=== PATIENT | male | born 1955 | race African-American/Black ===

== ENCOUNTER 2019-09-05 12:36 | Inpatient (IN) | payer MEDICAID ==
[~2019-09-05] VITALS: Ht 180.3 cm; Wt 102.8 kg
[~2019-09-05 12:36] MED LIST: FERR-71 MT; METO5AMP3 IV; VIT1TABL62 PO
[2019-09-05] MEDS ORDERED: ACETAMINOPHEN 325MG TABLET PO STA (13:15)
[2019-09-05 13:28] LABS: HEMATOCRIT. 32.3 % (42.0-52.0); HEMOGLOBIN. 10.8 g/dL (14.0-18.0); MEAN CORPUSCULAR HEMOGLOBIN 29.9 pg (28.0-32.0); MEAN CORPUSCULAR VOLUME 89.2 fL (80.0-94.0); MEAN PLATELET VOLUME 10.3 fl (7.4-10.4); PLATELET 82 x1000/uL (130-400); RED BLOOD CELL COUNT 3.62 mill/uL (4.7-6.1); RED CELL DISTRIBUTION WIDTH 17.7 % (11.6-14.6)
[2019-09-05 13:32] LABS: CHLORIDE 101 mEq/L (98-107); PROTHROMBIN TIME 11.1 sec (9.6-11.0)
[2019-09-05 14:20] LABS: PLATELET ESTIMATE SLIGHTLY DECREASED
[2019-09-05] MEDS ORDERED: METOCLOPRAMIDE HCL 10MG/2ML VIAL IV PRN (17:45)
[2019-09-05] MEDS ORDERED: CEFTRIAXONE 1 G PREMIX 50 ML IV SCH ×2 (17:45→18:23)
[2019-09-05] MEDS ORDERED: ASCORBIC ACID 500 MG TABLET PO SCH (22:26)
[2019-09-05 23:51] LABS: CLARITY URINE CLEAR (CLEAR); COLOR URINE YELLOW (YELLOW); KETONES URINE TRACE (NEGATIVE); LEUKOCYTE ESTERASE URINE NEGATIVE (NEGATIVE); NITRITE URINE NEGATIVE (NEGATIVE); OCCULT BLOOD URINE 1+ (NEGATIVE); PH URINE 6.5 (4.5-8.0); PROTEIN URINE 2+ (NEGATIVE); SPECIFIC GRAVITY URINE 1.015 (1.005-1.030)
[2019-09-06] MEDS: ACETAMINOPHEN 325MG TABLET PO PRN (00:47)
[2019-09-06] MEDS ORDERED: CEFEPIME 2,000 MG in DEXT 5% WATER 100 ML IV NR (02:00)
[2019-09-06 04:00] VITALS: BP 131/68
[2019-09-06 08:00] VITALS: BP 150/82
[2019-09-06] MEDS: HYDROXYCHLOROQUINE SULFATE 200MG TABLET PO SCH ×2 (08:55→21:04)
[2019-09-06] MEDS: ZINC SULFATE 220 MG ( 50 ) CAPSULE PO SCH (08:56)
[2019-09-06] MEDS: ASCORBIC ACID 500 MG TABLET PO SCH ×2 (08:56→21:04)
[2019-09-06] MEDS: THIAMINE HCL 100MG TABLET PO SCH ×2 (08:56→16:39)
[2019-09-06] MEDS ORDERED: AZITHROMYCIN 500 MG TABLET PO SCH (09:00)
[2019-09-06 12:00] VITALS: BP 109/59
[2019-09-06 16:00] VITALS: BP 125/65
[2019-09-06] MEDS ORDERED: CEFEPIME 2,000 MG in DEXT 5% WATER 100 ML IV SCH (18:00)
[2019-09-06 18:36] LABS: COVID-19 PCR RNA DETECTED
[2019-09-06 20:00] VITALS: BP 134/77
[2019-09-06] MEDS: CEFEPIME 2,000 MG in DEXT 5% WATER 100 ML IV SCH (21:03)
[2019-09-06] MEDS: GUAIFENESIN 600MG ER TABLET PO SCH (21:04)
[2019-09-07] VITALS: BP 118/76
[2019-09-07 04:00] VITALS: BP 127/65
[2019-09-07] MEDS: ACETAMINOPHEN 325MG TABLET PO PRN ×3 (04:31→23:02)
[2019-09-07 08:00] VITALS: BP 132/77
[2019-09-07] MEDS: AZITHROMYCIN 250 MG TABLET PO SCH (10:06)
[2019-09-07] MEDS: ZINC SULFATE 220 MG ( 50 ) CAPSULE PO SCH (10:06)
[2019-09-07] MEDS ORDERED: FENTANYL CITRATE/PF 50MCG/ML 2ML VIAL ONE (10:07)
[2019-09-07] MEDS: ASCORBIC ACID 500 MG TABLET PO SCH ×2 (10:07→21:59)
[2019-09-07] MEDS ORDERED: MIDAZOLAM HCL 2 MG/2 ML VIAL ONE (10:07)
[2019-09-07] MEDS: GUAIFENESIN 600MG ER TABLET PO SCH ×2 (10:07→21:59)
[2019-09-07] MEDS: HYDROXYCHLOROQUINE SULFATE 200MG TABLET PO SCH ×2 (10:07→21:59)
[2019-09-07] MEDS: CEFEPIME 2,000 MG in DEXT 5% WATER 100 ML IV SCH ×2 (10:07→21:59)
[2019-09-07] MEDS: THIAMINE HCL 100MG TABLET PO SCH ×2 (10:07→18:17)
[2019-09-07] MEDS ORDERED: PROPOFOL 200MG/20ML VIAL IV ONE (10:07)
[2019-09-07] MEDS ORDERED: ONDANSETRON HCL 4MG/2ML INJ ONE (10:36)
[2019-09-07] MEDS ORDERED: DEXAMETHASONE 4MG/ML 1ML VIAL ONE (10:36)
[2019-09-07 12:00] VITALS: BP 122/70
[2019-09-07 16:00] VITALS: BP 117/59
[2019-09-07 20:00] VITALS: BP 125/67
[2019-09-08] VITALS: BP 112/67
[2019-09-08 04:00] VITALS: BP 127/66
[2019-09-08 06:41] LABS: HEMATOCRIT. 30.7 % (42.0-52.0); HEMOGLOBIN. 10.3 g/dL (14.0-18.0); MEAN CORPUSCULAR HEMOGLOBIN 29.9 pg (28.0-32.0); MEAN CORPUSCULAR VOLUME 89.4 fL (80.0-94.0); MEAN PLATELET VOLUME 11.2 fl (7.4-10.4); PLATELET 81 x1000/uL (130-400); RED BLOOD CELL COUNT 3.43 mill/uL (4.7-6.1); RED CELL DISTRIBUTION WIDTH 18.6 % (11.6-14.6)
[2019-09-08 06:58] LABS: CHLORIDE 103 mEq/L (98-107)
[2019-09-08 07:05] LABS: PHOSPHORUS 2.6 mg/dL (2.5-4.9)
[2019-09-08 08:00] VITALS: BP 102/60
[2019-09-08 08:28] LABS: C REACTIVE PROTEIN QUANT > 190.0 mg/L (0.0-3.0)
[2019-09-08] MEDS: CEFEPIME 2,000 MG in DEXT 5% WATER 100 ML IV SCH ×2 (09:00→20:30)
[2019-09-08] MEDS: ASCORBIC ACID 500 MG TABLET PO SCH ×2 (09:01→20:30)
[2019-09-08] MEDS: HYDROXYCHLOROQUINE SULFATE 200MG TABLET PO SCH ×2 (09:01→20:30)
[2019-09-08] MEDS: THIAMINE HCL 100MG TABLET PO SCH ×2 (09:01→18:33)
[2019-09-08] MEDS: ZINC SULFATE 220 MG ( 50 ) CAPSULE PO SCH (09:01)
[2019-09-08] MEDS: GUAIFENESIN 600MG ER TABLET PO SCH ×2 (09:01→20:30)
[2019-09-08] MEDS: AZITHROMYCIN 250 MG TABLET PO SCH (09:01)
[2019-09-08 12:06] VITALS: BP 122/74
[2019-09-08 16:05] VITALS: BP 105/67
[2019-09-08 16:21] LABS: PLATELET ESTIMATE DECREASED
[2019-09-08] MEDS ORDERED: POTASSIUM CHLORIDE 20MEQ TABLET SR PO NR (17:45)
[2019-09-08 20:00] VITALS: BP 125/68
[2019-09-09] VITALS: BP 114/62
[2019-09-09 04:00] VITALS: BP 125/55
[2019-09-09 05:54] LABS: CHLORIDE 105 mEq/L (98-107)
[2019-09-09 06:03] LABS: PHOSPHORUS 2.3 mg/dL (2.5-4.9)
[2019-09-09 06:13] LABS: HEMATOCRIT. 30.5 % (42.0-52.0); HEMOGLOBIN. 10.2 g/dL (14.0-18.0); MEAN CORPUSCULAR HEMOGLOBIN 29.8 pg (28.0-32.0); MEAN PLATELET VOLUME 10.2 fl (7.4-10.4); PLATELET 84 x1000/uL (130-400); RED BLOOD CELL COUNT 3.43 mill/uL (4.7-6.1); RED CELL DISTRIBUTION WIDTH 18.2 % (11.6-14.6)
[2019-09-09 08:00] VITALS: BP 135/68
[2019-09-09] MEDS: THIAMINE HCL 100MG TABLET PO SCH ×2 (09:21→16:49)
[2019-09-09] MEDS: ASCORBIC ACID 500 MG TABLET PO SCH ×2 (09:21→20:26)
[2019-09-09] MEDS: ZINC SULFATE 220 MG ( 50 ) CAPSULE PO SCH (09:21)
[2019-09-09] MEDS: HYDROXYCHLOROQUINE SULFATE 200MG TABLET PO SCH (09:21)
[2019-09-09] MEDS: GUAIFENESIN 600MG ER TABLET PO SCH ×2 (09:22→20:26)
[2019-09-09] MEDS: CEFEPIME 2,000 MG in DEXT 5% WATER 100 ML IV SCH ×2 (09:22→23:46)
[2019-09-09 12:00] VITALS: BP 128/68
[2019-09-09 12:14] LABS: PLATELET ESTIMATE DECREASED
[2019-09-09] MEDS: DOXYCYCLINE 100 MG in DEXT 5% WATER 100 ML IV SCH (13:19)
[2019-09-09 16:00] VITALS: BP 127/67
[2019-09-09 20:00] VITALS: BP 135/78
[2019-09-09] MEDS: ACETAMINOPHEN 325MG TABLET PO PRN (23:46)
[2019-09-10] VITALS: BP 130/72
[2019-09-10] MEDS: DOXYCYCLINE 100 MG in DEXT 5% WATER 100 ML IV SCH ×2 (02:03→12:00)
[2019-09-10 04:00] VITALS: BP 150/81
[2019-09-10] MEDS: ACETAMINOPHEN 325MG TABLET PO PRN (06:31)
[2019-09-10 08:00] VITALS: BP 119/68
[2019-09-10] MEDS: GUAIFENESIN 600MG ER TABLET PO SCH ×2 (08:27→20:01)
[2019-09-10] MEDS: ASCORBIC ACID 500 MG TABLET PO SCH ×2 (08:27→20:01)
[2019-09-10] MEDS: THIAMINE HCL 100MG TABLET PO SCH ×2 (08:27→17:00)
[2019-09-10] MEDS: ZINC SULFATE 220 MG ( 50 ) CAPSULE PO SCH (08:27)
[2019-09-10] MEDS: CEFEPIME 2,000 MG in DEXT 5% WATER 100 ML IV SCH ×2 (09:17→21:48)
[2019-09-10 12:00] VITALS: BP 138/74
[2019-09-10 15:43] VITALS: BP 125/75
[2019-09-10 20:00] VITALS: BP 131/76
[2019-09-11] VITALS: BP 110/70
[2019-09-11] MEDS: DOXYCYCLINE HYCLATE 100MG CAPSULE PO SCH ×2 (00:11→12:47)
[2019-09-11 04:00] VITALS: BP 119/72
[2019-09-11 08:00] VITALS: BP 105/62
[2019-09-11] MEDS: ZINC SULFATE 220 MG ( 50 ) CAPSULE PO SCH (08:22)
[2019-09-11] MEDS: ASCORBIC ACID 500 MG TABLET PO SCH ×2 (08:22→21:03)
[2019-09-11] MEDS: THIAMINE HCL 100MG TABLET PO SCH ×2 (08:23→17:20)
[2019-09-11] MEDS: GUAIFENESIN 600MG ER TABLET PO SCH ×2 (08:23→21:03)
[2019-09-11] MEDS: CEFEPIME 2,000 MG in DEXT 5% WATER 100 ML IV SCH ×2 (10:19→21:03)
[2019-09-11 12:00] VITALS: BP 114/72
[2019-09-11 16:00] VITALS: BP 136/69
[2019-09-11 20:00] VITALS: BP 122/85
[2019-09-12] VITALS (7 sets, daily range): BP systolic 104–121; BP diastolic 65–80
[2019-09-12] MEDS: DOXYCYCLINE HYCLATE 100MG CAPSULE PO SCH ×2 (00:16→12:56)
[2019-09-12] MEDS: ASCORBIC ACID 500 MG TABLET PO SCH (09:04)
[2019-09-12] MEDS: GUAIFENESIN 600MG ER TABLET PO SCH ×2 (09:05→20:41)
[2019-09-12] MEDS: THIAMINE HCL 100MG TABLET PO SCH (09:05)
[2019-09-12] MEDS: ZINC SULFATE 220 MG ( 50 ) CAPSULE PO SCH (09:05)
[2019-09-13] MEDS: DOXYCYCLINE HYCLATE 100MG CAPSULE PO SCH ×2 (00:18→13:17)
[2019-09-13 04:00] VITALS: BP 121/65
[2019-09-13 08:00] VITALS: BP 120/87
[2019-09-13] MEDS: ZINC SULFATE 220 MG ( 50 ) CAPSULE PO SCH (08:11)
[2019-09-13] MEDS: GUAIFENESIN 600MG ER TABLET PO SCH ×2 (08:11→20:50)
[2019-09-13 12:00] VITALS: BP 125/85
[2019-09-13 16:00] VITALS: BP 123/84
[2019-09-13 20:00] VITALS: BP 92/61
[2019-09-14] VITALS: BP 119/68
[2019-09-14] MEDS: DOXYCYCLINE HYCLATE 100MG CAPSULE PO SCH (00:29)
[2019-09-14 04:00] VITALS: BP 115/59
[2019-09-14 08:00] VITALS: BP 126/68
[2019-09-14] MEDS: GUAIFENESIN 600MG ER TABLET PO SCH ×2 (08:01→20:09)
[2019-09-14] MEDS: ZINC SULFATE 220 MG ( 50 ) CAPSULE PO SCH (08:01)
[2019-09-14 12:00] VITALS: BP 124/71
[2019-09-14 16:00] VITALS: BP 121/74
[2019-09-14 20:00] VITALS: BP 130/75
[2019-09-15] VITALS: BP 108/69
[2019-09-15 04:00] VITALS: BP 124/75
[2019-09-15] MEDS: ACETAMINOPHEN 325MG TABLET PO PRN (05:50)
[2019-09-15 08:00] VITALS: BP 110/60
[2019-09-15] MEDS: GUAIFENESIN 600MG ER TABLET PO SCH (08:42)
[2019-09-15] MEDS: ZINC SULFATE 220 MG ( 50 ) CAPSULE PO SCH (08:42)
[2019-09-15 12:00] VITALS: BP 105/66
[2019-09-15 16:56] VITALS: BP 105/66
== END 2019-09-15 18:00 | disposition home health service (06) | DRG 720 ==
LOC: ER 12:43 → 7EST 16:04 → EDBEDREQSVC 16:05 → EDBEDREQTM 16:05 → EDBEDREQ 16:05 → ENRESERV 09-06 02:57 → 7EST 09-08 13:45
PROVIDERS: ADMIT Internal Medicine; ATTEND Internal Medicine
DX: A41.89 Other specified sepsis (principal); U07.1 COVID-19; J96.00 Acute respiratory failure, unspecified whether with hypoxia or hypercapnia; D69.6 Thrombocytopenia, unspecified; C61 Malignant neoplasm of prostate; J15.9 Unspecified bacterial pneumonia; I45.81 Long QT syndrome; D64.9 Anemia, unspecified; I10 Essential (primary) hypertension; Z79.899 Other long term (current) drug therapy
CPT/HCPCS: 36415; 71045; 80053; 81003; 82728; 83605; 83615; 83735; 84100; 84145; 85025; 85379; 86140; 87420; 87493; 87804; 99285; J0692; J0696; J1100; J2250; J2405; J2704; J2765; J3010; J3490; J7060